=== PATIENT | female | born 1980 | race Asian ===

== ENCOUNTER 2017-04-06 17:47 | Day surgery (SDC) | payer OTHER ==
[~2017-04-06] VITALS: Ht 160 cm; Wt 54.5 kg
[2017-04-06] MEDS ORDERED: NACL 0.9% 1,000 ML IV SCH (17:53)
[2017-04-06 17:56] VITALS: BP 122/69
[2017-04-06 18:42] LABS: BASOPHILS # (AUTO) 0.2 K/uL (0.00-0.22); BASOPHILS % (AUTO) 1.5 % (0.0-2.0); EOSINOPHILS # (AUTO) 0.1 K/uL (0-0.4); EOSINOPHILS % (AUTO) 0.7 % (0.0-4.0); HEMATOCRIT 40.7 % (36-48); HEMOGLOBIN 13.6 g/dL (12.0-16.0); LYMPHOCYTES # (AUTO) 1.4 K/uL (2.5-16.5); LYMPHOCYTES % (AUTO) 13.3 % (20.5-51.1); MEAN CORPUSCULAR HEMOGLOBIN 28 pg (27-31); MEAN CORPUSCULAR HGB CONC 33 g/dL (33-37); MEAN CORPUSCULAR VOLUME 84 fL (80-94); MONOCYTES # (AUTO) 0.4 K/uL (0.8-1.0); MONOCYTES % (AUTO) 4.2 % (1.7-9.3); NEUTROPHILS # (AUTO) 8.4 K/uL (1.8-7.7); NEUTROPHILS % (AUTO) 80.3 % (42.2-75.2); PLATELET COUNT (AUTO) 240 K/uL (140-450); RED BLOOD CELL COUNT(AUTO) 4.82 MIL/uL (4.20-5.40); RED CELL DISTRIBUTION WIDTH 13.8 % (11.6-13.7); WHITE BLOOD COUNT (AUTO) 10.4 K/uL (4.8-10.8)
[2017-04-06 18:44] LABS: BILIRUBIN,URINE NEGATIVE (NEGATIVE); BLOOD, URINE 2+ (NEGATIVE); COLOR,URINE YELLOW (YELLOW); LEUKOCYTE ESTERASE ,URINE TRACE (NEGATIVE); NITRITE, URINE NEGATIVE (NEGATIVE); UGLUCOSE NEGATIVE (NEGATIVE)
[2017-04-06 18:50] LABS: APPEARANCE,URINE HAZY (CLEAR)
[2017-04-06 18:57] LABS: RBC,URINE 3-10 (FEW) /HPF (0-5); WBC,URINE 20-60 /HPF (0-5)
--- NOTE | 2017-04-06 19:10 | NUR ---
Pt came into ED for IV insertion prior to DC at the OR. Pt admitted to ED with VVS and no c/o pain. A&Ox4 at bedside. IV inserted into right AC. Pt released to OR at 1919.
[2017-04-06] MEDS ORDERED: fentaNYL 0.05 MG/ML VIAL ONE (19:19)
[2017-04-06] MEDS ORDERED: MIDAZOLAM 2 MG/2 ML VIAL ONE (19:19)
[2017-04-06] MEDS ORDERED: MEPERIDINE 25 MG/ML SYR ONE (19:19)
[2017-04-06] MEDS ORDERED: MORPHINE SULFATE 4 MG/ML SYR IM/IVP PRN (19:45)
[2017-04-06] MEDS ORDERED: ACETAMINOPHEN/CODEINE 300/30MG 1 TAB PO PRN (19:45)
[2017-04-06] MEDS ORDERED: IBUPROFEN 800 MG TAB PO PRN (19:45)
[2017-04-06] MEDS ORDERED: ONDANSETRON 4 MG/2 ML VIAL IVP PRN ×2 (19:45→20:05)
[2017-04-06] MEDS ORDERED: LACTATED RINGERS 1,000 ML IV SCH (20:01)
[2017-04-06] MEDS ORDERED: diphenhydrAMINE 50 MG/ML VIAL IVP PRN (20:05)
[2017-04-06] MEDS ORDERED: HYDROmorphone PFS 2 MG/ML SYR IVP PRN (20:05)
[2017-04-06] MEDS ORDERED: MEPERIDINE 25 MG/ML SYR IVP PRN (20:05)
--- NOTE | 2017-04-06 20:30 | NUR ---
PT ARRIVED TO UNIT AT THIS TIME. RECEIVED REPORT FROM OR NURSE. PT IS OUTPATIENT FOR D&C PROCEDURE AND WILL BE DISCHARGED TONIGHT. CHARTING TO BE DONE IN OR NURSE DESKTOP. PT HAS IV TO LEFT AC 20G INFUSING LR ON OPEN LINE. PT HAS SOME VAGINAL BLEEDING FROM PROCEDURE, LIGHT-MODERATE. VITAL SIGNS ARE STABLE, WITHIN NORMAL LIMITS. WILL CONTINUE TO MONITOR. BED IS IN LOWEST POSITION, CALL LIGHT WITHIN REACH. PT DRANK SOME WARM WATER AND A JUICE AND IS TOLERATING WELL. ADVISED PT TO USE CALL LIGHT WHEN READY TO VOID.
[2017-04-06 22:15] VITALS: BP 103/72
--- NOTE | 2017-04-07 03:15 | NUR ---
PT D/C'D FROM ED AND TRANFERED TO OR FOR SX. PT TRANSFEREED VIA GURNEY BY OR CLINICAL PROGRAM DIRECTOR. PT TRANSFERRED WITH VSS.
== END 2017-04-06 22:40 | disposition home or self-care (01) ==
LOC: MED 17:47 → MDS 19:25 → MTU 19:25 → MDS 22:40
PROVIDERS: ATTEND Obstetrics & Gynecology
DX: O02.1 Missed abortion (principal)
CPT/HCPCS: 36415; 59820; 81001; 84702; 85025; 86886; 86900; 86901; 87086; 99285; J2175; J2250; J3010; J7120